=== PATIENT | male | born 2000 | race Caucasian/White ===

== ENCOUNTER → 2024-08-07 | Outpatient (CLI) | payer BC, MEDICAID, SELFPAY ==
--- NOTE | 2024-08-07 09:04 | CT_ITS ---
PROCEDURE: SINUS/FACIAL BONE REASON FOR EXAM: SINUSITIS TECHNIQUE: CT of the paranasal sinuses without contrast. Coronal and Sagittal reconstruction series were provided. One or more dose reduction techniques were used (e.g., Automated exposure control, adjustment of the mA and/or kV according to patient size, use of iterative reconstruction technique). COMPARISON: None. FINDINGS: [id number] scattered polypoid mucosal thickening throughout the bilateral maxillary, ethmoid and sphenoid sinuses. No frothy mucosal thickening or fluid levels to suggest acute sinusitis. Opacification of the left sphenoethmoidal recess and bilateral ostiomeatal units. Marked asymmetric mucosal thickening of the left middle and inferior turbinates without a discrete polypoid mass. Mild rightward nasal septal deviation. Small bilateral quinton bullosa. Mastoid air cells and middle ear cavities are clear. TMJs are within normal limits. CT/Sinus/Facial Bone IMPRESSION: 1. [id number] scattered paranasal sinus disease as above. No evidence of acute sinusitis. 2. Opacification of the left sphenoethmoidal recess and bilateral ostiomeatal u nits. 3. Asymmetric thickening of the left turbinates. Small bilateral quinton bullos a. 4. Mild rightward nasal septal deviation. Reading Location: [facility]
== END | disposition home or self-care (01) ==
LOC: CT 08:55
PROVIDERS: Referring Provider Otolaryngology Otolaryngology/Facial Plastic Surgery; Visit Provider Otolaryngology Otolaryngology/Facial Plastic Surgery
DX: J32.9 Chronic sinusitis, unspecified (principal)
CPT/HCPCS: 70486

== ENCOUNTER 2024-11-29 08:21 | Day surgery (SDC) | payer BC, SELFPAY ==
[2024-11-29] VITALS (10 sets, daily range): BP systolic 77–124; BP diastolic 51–68; PULSE 40–53; RESP 12–18; TEMP 36.2–36.9; O2SAT 94–100; BMI 22.5
[2024-11-29] MEDS: Lactated Ringers 1,000 ML 15 ML IV (08:59)
[2024-11-29] MEDS: Oxymetazoline 0.05% 1 SPRAY SPRAY.BTL 3 SPRAY NASAL (09:07)
--- NOTE | 2024-11-29 09:14 | PRE.ANES_ITS ---
ASA Classification* ASA Classification ASA Classification: 2 Assessment & Plan Anesthesia* Anesthesia Assessment Anesthesia Assessment: Discussed sedation and/or anesthesia options, risks, benefits, and alternatives with patient/parents/legal guardian/POA. Questions invited. The patient/parents/legal guardian/POA seems to understand and agrees to proceed with anesthesia plan. Reviewed the physical assessment, medical history, allergy history and patient home medications list prior to surgery/procedure/anesthetic and documented any changes. Performed airway and anesthesia risk assessments. 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 When Was Last Pacemaker Check QUESTION #4 FULL TEXT: You/Your Family Experience fever (hyperthermia) with Anesthesia Last Oral Intake Last Oral intake: Last Oral Intake NPO since 00:00 11/29/24 09:01 Meds taken in AM with sips of No 11/29/24 09:01 water? Meds patient instructed to take am of surgery PONV PONV - branner machine tender: PONV - branner machine tender Female No 11/15/24 08:50 HX of Motion Sickness No 11/15/24 08:50 HX of N/V After Surgery No 11/15/24 08:50 Non-Smoker Yes 11/15/24 08:50 Duration of Surgery greater Yes 11/15/24 08:50 than 60 minutes Number of Risk Factors 2 11/15/24 08:50 PONV Score Moderate Risk 11/15/24 08:50 Height & Weight Height & Weight: Anesthesia: Height & Weight Height 6 ft 3 in 11/29/24 09:01 Weight: 81.7 kg 11/29/24 09:01 Body Mass Index (BMI) 22.5 11/29/24 09:01 Respiratory Assessment Respiratory Assessment - branner machine tender: Respiratory Tract Infection Hx - branner machine tender Hx Respiratory Tract Infection Yes: COVID + TESTED 10/03/2024 11/15/24 08:50 STOP Sleep Apnea STOP Sleep Apnea - branner machine tender: STOP Sleep Apnea - branner machine tender Hx Hypertension No 11/15/24 08:50 Hx Sleep Apnea No 11/15/24 08:50 CPAP BIPAP Do you snore loudly (louder No 11/15/24 08:50 than talking or can be heard Do you often feel tired/ No 11/15/24 08:50 fatigued/ sleepy during daytime? Has anyone observed you stop No 11/15/24 08:50 breathing during sleep? STOP Results Negative 11/15/24 08:50 QUESTION #5 FULL TEXT : Do you snore loudly (louder than talking or can be heard through closed doors)? 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 Specify any problems Hx of Preganancy in last 3 N/A 11/15/24 08:50 Months Nurse Filling Out Transfusion NBUCHER 11/15/24 08:50 & Questions: Date: 11/15/24 11/15/24 08:50 Time: 08:50 11/15/24 08:50 Patient unable to answer at this time (ie. confused, unrespo /Reproduction History /Reproductive History - branner machine tender: /Reproductive Hx- branner machine tender Hx Now Gestational Age (in weeks): EDC: Hx Hx Para Hx Section SAB Active Medications Active Medications: Current Medications Generic Name Dose Route Start Last Admin Trade Name Freq PRN Reason Stop Dose Admin Lactated Ringer's 1,000 mls @ 15 mls/hr 11/29/24 08:45 11/29/24 08:59 IV 15 mls/hr .Q48H EVELIN Administration PFSH Medical History Wears glasses Wears contact lenses Alcohol use History of steroid therapy Injury of head and neck Chewing tobacco dependence Home Medications ?Medication ?Instructions ?Recorded ?Last Taken ?Type NK 10/07/24 Unknown History Allergy/AdvReac Type Severity Reaction Status Date / Time No Known Allergies Allergy Verified 11/29/24 08:59 Social History Smoking Status: Current some day smoker tobacco type: smokeless tobacco Review of Systems (Anesthesia) ROS Narrative System reviewed and no additional complaints, except as documented.
[2024-11-29] MEDS: Lactated Ringers 1,000 ML 1000 ML IV (09:46)
[2024-11-29] MEDS: fentaNYL 250mcg vial 100 ML 100 MCG IV (09:46)
[2024-11-29] MEDS: dexMEDEtomidine 200 MCG/2 ML ML 60 MCG IV (09:47)
--- NOTE | 2024-11-29 09:51 | PCM.DC.SUM ---
Providers Primary Care Physician: No Primary Care Phys Reason For Visit: Functional Endoscopoic Sinus Surgery, Navigation Medications at Discharge Home Medications NK 10/07/24 Weight / BMI Weight Weight: 81.7 kg Body Mass Index (BMI) 22.5 D/C Instructions Discharge Activity: Return to Normal Activity Additional Activity Instructions: No nose blowing Start irrigation 11/30/24. Irrigate 4x/day DC O2, CPAP, BIPAP Needs Home O2 Discharge instructions: No Please Follow Up With: Jay Brown MD When: Next week. Call for appointment Meaningful Use Info Meaningful Use Meaningful Use Diagnoses (Choose all that apply): None applicable Discharge Plan Admission Attending Provider: Jay Brown Primary Care Provider: Care Physician,No Primary Instructions Print Language: E[place] Discharge Orders/Prescriptions Prescriptions: No Action NK Referrals / Follow Up: Care Physician,No Primary [Primary Care Provider] - Disposition Disposition (needs filled in before D/C Order can be placed): Home, Self Care
--- OUTSIDE RECORDS SUMMARY | 2024-11-29 09:56 | XMS RPT_ITS | CCD ---
Author Organization [facility] Care Team Providers Care Telephonic Case Manager Name Role Phone Trudi Wright Unavailable UnavailDANIEL Gallegos Unavailable Unavailable Veronica Holcomb Primary Care Provid er Veronica Holcomb MD Primary Care Pro vider Unavailable Primary Care Provider Unavailabl e VEORNICA HOLCOMB Primary Care Jeanette vailable Kevin FAGAN, Dr. Zack Tapia Attending Provider [phone] Dr. Zack Brown MD Referring Provider [phone] Care Physician, No Primary Primary Care Provider Unavailable Zack Brown Referring Unavailable Zack Brown Attending Unavailable Care Physician, No Primary Primary Care Unava ilable Care Physician, No Primary Primary Care Unava ilable Jay Brown Referring Unavailable Jay Brown Attending Unavailable Medications Current Medications Medication Drug Class(es) Dates Sig (Normalized) Sig (Original) amoxicillin 875 mg / clavulanate 125 mg oral tablet (2 sources) Penicillin-class Antibacterial Start: 06-10-2024 End: 06-20-2024 take 1 tablet by mouth twice daily amoxicillin-clav ulanate potassium (AUGMENTIN) 875-125 mg per tablet Indications: Bacterial sinusitis Take 1 tablet by mouth two times a day for 10 days. 20 tablet 06/10/2024 06/20/2024 Active Start: 04-20-2024 End: 04-27-2024 take 1 tablet by mouth twice daily amoxicillin-clavulanate potassium (AUGMENTIN) 875-125 mg per tablet Indications: Bacterial sinusitis Take 1 tablet by mouth two times a day for 7 days. 14 tablet 04/20/2024 04/27/2024 Active brompheniramine maleate 0.4 mg/ml / dextromethorphan hydrobromide 2 mg/ml / pseudoephedrine hydrochloride 6 mg/ml oral solution (4 sources) alpha-Adrenergic Agonist, Uncompetitive I-uvshzq-A-aspartate Receptor Antagonist, Sigma-1 Agonist Start: 12-11-2020 take 5-10 mL by mouth every six hours as needed Lcdttjhdorobnwf-Cgusmesqx-MY (BROMFED DM) 2-30-10 mg/5 mL syrup Take 5-10 ml po q6h prn 120 mL 12/11/2020 Active Comment on above: Take 5-10 ml po q6h prn doxycycline hyclate 100 mg oral capsule (4 sources) Tetracycline-class Drug take 1 capsule by mouth twice daily doxycycline hyclate (VIBRAMYCIN) 100 mg capsule Take 100 mg by mouth twice daily. Active Comment on above: Take 100 mg by mouth twice daily. fluticasone propionate 0.05 mg/actuat metered dose nasal spray (2 sources) Corticosteroid Start: 04-20-2024 take 2 spray(s ) by mouth once daily fluticasone (FLONASE) 50 mcg/actuation nasal spray Indications: Bacterial sinusitis Use 2 Sprays in each nostril once daily. Rinse mouth after use. 1 Each 04/20/2024 Active Problems Problem Classification Problem Date Documented Da te Episodic/Chronic Other upper respiratory infections (3 sources) Bacterial sinusitis; Translations: [Chronic sinusitis, unspecified] Onset: 11-09-2024 04-20-2024 Chronic Other upper respiratory infections (1 source) Acute upper respiratory infection; Translations: [Acute upper respiratory infection, unspecified] Episodic Results Test Name Value Interpretation Reference Range Facility Sinus/Facial Boneon 08-08-19 Sinus/Facial Bone [facility] Imaging Services [address] [place] [address] Sinus/Facial Bone MR#: [id number] Acct: [id number] Name: TIP CASE Rep #: [id number] : 2000 M 24 From: Kal Cobb PCP: Care Physician,No Primary Status: REG CLI Study: Sinus/Facial Bone Date of Exam: 08/07/24 Exam# [id number] Ordering Dr: Zack Brown MD PROCEDURE: SINUS/FACIAL BONE REASON FOR EXAM: SINUSITIS TECHNIQUE: CT of the paranasal sinuses without contrast. Coronal and Sagittal reconstruction series were provided. One or more dose reduction techniques were used (e.g., Automated exposure control, adjustment of the mA and/or kV according to patient size, use of iterative reconstruction technique). COMPARISON: None. FINDINGS: Veyu-ci-uvvvyagz scattered polypoid mucosal thickening throughout the bilateral maxillary, ethmoid and sphenoid sinuses. No frothy mucosal thickening or fluid levels to suggest acute sinusitis. Opacification of the left sphenoethmoidal recess and bilateral ostiomeatal units. Marked asymmetric mucosal thickening of the left middle and inferior turbinates without a discrete polypoid mass. Mild rightward nasal septal deviation. Small bilateral quinton bullosa. Mastoid air cells and middle ear cavities are clear. TMJs are within normal limits. CT/Sinus/Facial Bone IMPRESSION: 1. Hdpr-np-dqmviyxa scattered paranasal sinus disease as above. No evidence of acute sinusitis. 2. Opacification of the left sphenoethmoidal recess and bilateral ostiomeatal units. 3. Asymmetric thickening of the left turbinates. Small bilateral quinton bullosa. 4. Mild rightward nasal septal deviation. Reading Location: [facility] CC: Dr. Zack Brown MD; No Primary Care Physician Senior Data Mining Analyst: Signed [facility] CNOVon 06-10-2024 CNOV Office Visit (UCWSTR ) TIP CASE ([id number]) 4 M Date Time Provider Department 06/10/24 3:15 PM [facility] During your visit today, we recorded the following information about you: Temperature Pulse Respiration Blood pressure 98.6 degrees 81/minute 18/minute 107/69 Weight 87 kg Marii Bryson APRN.CNP 06/10/2024 3:36 PM Signed This note was created using Sentrixriter. Subjective Tip Case is a 24 year old male. HPI For about the last three months pt has had sinus congestion and pressure. I was seen 04/20 and given a script of Augmentin. Symptoms almost resolved but then returned again. Review of Systems Constitutional: Negative for fever. HENT: Positive for sinus pressure and sinus pain. Respiratory: Negative for cough. Objective BP 107/69 Pulse 81 Temp 37 ?C (98.6 ?F) Resp 18 Wt 87 kg (191 lb 12.8 oz) SpO2 99% Physical Exam Vitals and nursing note reviewed. Constitutional: General: He is not in acute distress. Appearance: Normal appearance. He is not ill-appearing. HENT: Head: Normocephalic. Mouth/Throat: Mouth: Mucous membranes are moist. Pharynx: No oropharyngeal exudate or posterior oropharyngeal erythema. Eyes: Conjunctiva/sclera: Conjunctivae normal. Cardiovascular: Rate and Rhythm: Normal rate and regular rhythm. Pulmonary: Effort: Pulmonary effort is normal. Breath sounds: Normal breath sounds. Musculoskeletal: General: Normal range of motion. Cervical back: Normal range of motion. Skin: General: Skin is warm and dry. Neurological: General: No focal deficit present. Mental Status: He is alert. Psychiatric: Mood and Affect: Mood normal. Behavior: Behavior normal. Assessment and Plan ASSESSMENT/PLAN: 1. Bacterial sinusitis - ICD9: 473.9, 041.9, ICD10: J32.9, B96.89 -Discussed with patient my concerns that his symptoms may be caused by something other than a bacterial infection. He was given an additional prescription as noted below but instructed him that if symptoms do not improve I would recommend follow-up with ENT. He will otherwise use iutj-gcs-jhrheox nasal sprays and decongestants for symptomatic relief. - AMOXICILLIN 875 MG-POTASSIUM CLAVULANATE 125 MG TABLET Marii Bryson APRN.CNP Allergies As of Date: 06/10/2024 (No Known Allergies) Date Reviewed: 06/10/2024 Reviewed by: Marii Bryson APRN.CNP - Fully Assessed Reason for Visit: Head Congestion [234] Cmt: Sinus congestion, drainage, MIR x3 months, seen 04/20 for same, 3 weeks at that time Primary Visit Diagnosis:Bacterial sinusitis [J32.9, B96.89] Order(s):amoxicillin- clavulanate potassium (AUGMENTIN) 875-125 mg per tabletTake 1 tablet by mouth two times a day for 10 days.Disp: 20 tabletRfl: 0 Prescriptions as of 06/10/2024 - amoxicillin-clavulana te potassium (AUGMENTIN) 875-125 mg per tablet Take 1 tablet by mouth two times a day for 10 days. - fluticasone (FLONASE) 50 mcg/actuation nasal spray Use 2 Sprays in each nostril once daily. Rinse mouth after use. - doxycycline hyclate (VIBRAMYCIN) 100 mg capsule Take 100 mg by mouth twice daily. - Brompheniramine-Pseud oeph-DM (BROMFED DM) 2-30-10 mg/5 mL syrup Take 5-10 ml po q6h prn Problem List As Of Date: 06/10/2024 (None) Prescriptions ordered this encounter Disp Refills Start End AMOXICILLIN 875 MG-POTASSIUM CLAVULA* 20 t* 0 06/10/2024 06/20/2024 Route: ORAL Sig: Take 1 tablet by mouth two times a day for 10 days. Encounter Status:Closed by MARII BRYSON on 06/10/24 [facility] CNOVdedra 04-20-2024 CNOV Office Visit ([facility] ) TIP CASE ([id number]) 4 M Date Time Provider Department 04/20/24 11:15 AM [facility] During your visit today, we recorded the following information about you: Temperature Pulse Respiration Blood pressure 97.4 degrees 84/minute 16/minute 110/66 Weight 84 kg Melissa Marquez APRN.EDGE TRIMMER MECHANIC 04/20/2024 12:10 PM Signed Subjective Sinus Problem Associated symptoms include congestion and coughing. Pertinent negatives include no chills, fever, myalgias or sore throat. Tip Case is a 23 year old male who presents with sinus pressure and congestion x 3 weeks. He states congestion is worse at night. He has had brown mucous from his nose. He has a slight cough. Has had not had a fever. He has not taken any medication at home. Review of Systems Constitutional: Negative for chills, fever and malaise/fatigue. HENT: Positive for congestion and sinus pain. Negative for ear pain and sore throat. Respiratory: Positive for cough. Cardiovascular: Negative. Musculoskeletal: Negative for myalgias. BP 110/66 Pulse 84 Temp 36.3 ?C (97.4 ?F) Resp 16 Wt 84 kg (185 lb 3 oz) SpO2 97% No past medical history on file. No past surgical history on file. ALLERGIES Patient has no known allergies. MEDICATIONS amoxicillin-clavulana te potassium (AUGMENTIN) 875-125 mg per tablet Take 1 tablet by mouth two times a day for 7 days. fluticasone (FLONASE) 50 mcg/actuation nasal spray Use 2 Sprays in each nostril once daily. Rinse mouth after use. doxycycline hyclate (VIBRAMYCIN) 100 mg capsule Take 100 mg by mouth twice daily. (Patient not taking: Reported on 10/16/2021 ) Brompheniramine-Pseud oeph-DM (BROMFED DM) 2-30-10 mg/5 mL syrup Take 5-10 ml po q6h prn (Patient not taking: Reported on 10/16/2021 ) No family history on file. Social History Tobacco Use Smoking status: Never Smokeless tobacco: Never Objective Physical Exam Vitals and nursing note reviewed. Constitutional: General: He is not in acute distress. Appearance: Normal appearance. He is not ill-appearing. HENT: Right Ear: Tympanic membrane, ear canal and external ear normal. Left Ear: Tympanic membrane, ear canal and external ear normal. Nose: Nasal tenderness, mucosal edema, congestion and rhinorrhea present. Mouth/Throat: Mouth: Mucous membranes are moist. Pharynx: Oropharynx is clear. Uvula midline. No oropharyngeal exudate or posterior oropharyngeal erythema. Cardiovascular: Rate and Rhythm: Normal rate and regular rhythm. Heart sounds: Normal heart sounds. Pulmonary: Effort: Pulmonary effort is normal. No respiratory distress. Breath sounds: Normal breath sounds. No wheezing or rales. Musculoskeletal: Cervical back: Neck supple. Lymphadenopathy: Cervical: No cervical adenopathy. Skin: General: Skin is warm and dry. Findings: No erythema or rash. Neurological: Mental Status: He is alert. ASSESSMENT/PLAN: 1. Bacterial sinusitis - ICD9: 473.9, 041.9, ICD10: J32.9, B96.89 - Will begin treatment with as per antibiotic as written, see orders - Supportive care with plenty of fluids, rest, and analgesia prn. - AMOXICILLIN 875 MG-POTASSIUM CLAVULANATE 125 MG TABLET - FLUTICASONE PROPIONATE 50 MCG/ACTUATION NASAL SPRAY,SUSPENSION - Follow-up with your PCP in 3-5 days if symptoms have not improved or sooner if symptoms worsen - Discussed red flags and need for immediate medical evaluation if any occur. - Discussed supportive care treatment with fluids, rest and analgesia. - Discussed expected course of illness KINGSLEY Tan Kathy, APRN.CNP 04/20/2024 12:09 PM Signed ASSESSMENT/PLAN: 1. Bacterial sinusitis - ICD9: 473.9, 041.9, ICD10: J32.9, B96.89 - Will begin treatment with as per antibiotic as written, see orders - Supportive care with plenty of fluids, rest, and analgesia prn. - AMOXICILLIN 875 MG-POTASSIUM CLAVULANATE 125 MG TABLET - FLUTICASONE PROPIONATE 50 MCG/ACTUATION NASAL SPRAY,SUSPENSION - Follow-up with your PCP in 3-5 days if symptoms have not improved or sooner if symptoms worsen - Discussed red flags and need for immediate medical evaluation if any occur. - Discussed supportive care treatment with fluids, rest and analgesia. - Discussed expected course of illness Melissa Marquez APRN.CNP Adult Sinusitis Patient Education What is Sinusitis? Sinusitis [crqw-rkl-iuug-tis] is inflammation of the sinuses or swelling of the lining of the sinus cavity or nose. During an infection the sinuses become blocked with fluid causing swelling of the lining of the sinuses. Symptoms: (viral and bacterial infections) Stuffy nose Runny nose Postnasal drip Fever Toothache Headache Tiredness Cough Sore throat Face and head pressure and or pain Common causes: 98% of sinus infections are (more content not included)... Normal [facility] Progress Noteon 10-18-2019 Golf Sales Associate Authentication Interface Message Text Patient ID: Tip Case is a 19 y.o. male. His chief complaint(s) include: No chief complaint on file. Assessment 1. Encounter for routine child health examination without abnormal findings 2. Exercise counseling 3. Encounter for dietary counseling and surveillance 4. Need for vaccination Plan Diagnoses and all orders for this visit: Encounter for routine child health examination without abnormal findings - Hearing Screening - Vision Screening - PHQ9 Assessment With Score Exercise counseling Encounter for dietary counseling and surveillance Need for vaccination - Meningococcal ACWY (MENACTRA) - Meningococcal B (BEXSERO) Return in about 1 year (around 10/17/2020) for well check. gardasil vaccine benefits and risks discussed. Parent declined at this time. Reviewed good progress with school. Subjective He is unaccompanied. 19 YEAR WELL CHILD Home: Tip eats meals with family, has an adult to turn to for help and is permitted and able to make independent decisions. Education: Tip is in 12th grade and is doing well, is doing well with homework, earns A's & B's and earns C's. ([employer]). Eating: Tip eats regular meals including fruits and vegetables, eats breakfast, limits fast food, drinks non-sweetened liquids and has a calcium source. Activities & Sports: Tip has a job ([employer]ing), plays team sports (basketball, football) and has drivers license. Drugs: Tip does not use tobacco, does not use drugs, does not use alcohol and does not vape. Safety: Tip has a violence free home, has peer relationships free from violence and uses seat belt. Sex: The patient has a sexual partner. The patient is interested in females. The patient has had sex. The patient's gender identity is cisgender. Typically, the patient uses condoms as current contraceptive method. The patient has not had an STD. The patient's partner has had an STD: no. STD screening offered and declined. Suicidality: Tip has no depression, has no anxiety, has no suicidal ideation and has no homicidal ideation. Output Urine and Stool Pattern: Urine and Stool Pattern: Normal stool pattern, normal urine pattern. Stool Consistency: soft Sleep Sleeping Difficulty: no difficulty sleeping Hours of sleep at a time: 8 Teen Anticipatory Guidance The following anticipatory guidance was reviewed during the visit: Nutrition: limit junk food/fast food and soft drinks. Safety: home safety. Social: avoid or limit screen time and bullying. Health: age appropriate dental care, avoid situations where drugs and alcohol are present, how to resist peer pressure to smoke, drink, use drugs, learn how to say 'no' to sex, contraception/practic e safe sex/ use condoms, discuss athletic conditioning/ weight training/weight supplements, learn to manage time and activities, be responsible for attendance/ homework/ course selection, learn about self and strengths, recognize and deal with stress and driving risks. Screenings Life events information was reviewed-no referral needed Hearing Vision Concerns: The caregiver has no concerns about the patient's hearing. The caregiver has no concerns about the patient's vision. Primary Care Review of Systems Objective Vital Signs 10/18/19 1512 BP: 125/71 Pulse: 78 Weight: 87.1 kg Height: 188.1 cm Body mass index is 24.62 kg/m . Physical Exam Constitutional: He appears well. He is active. No distress. HENT: Head: Atraumatic. Ears: Right Ear: Tympanic membrane and external ear normal. Left Ear: Tympanic membrane and external ear normal. Nose: Nose normal. Mouth/Throat: Mucous membranes are moist. Dentition is normal. Oropharynx is clear. Eyes: Conjunctivae and EOM are normal. No strabismus. Pupils are equal, round, and reactive to light. Neck: Normal range of motion. Neck supple. Thyroid normal. Cardiovascular: Normal rate, regular rhythm, S1 normal and S2 normal. Pulses are palpable. Heart murmur not heard. Pulmonary/Chest: Breath sounds normal. No respiratory distress. Exhibits no deformity. Abdominal: Soft. Bowel sounds are normal. He exhibits no distension and no mass. There is no hepatosplenomegaly. There is no abdominal tenderness. Genitourinary: Testes and penis normal. No inguinal hernia noted. Musculoskeletal: Normal range of motion. Back: He exhibits no scoliosis. Neurological: He is alert. He has normal strength. He exhibits normal muscle tone. Gait normal. Skin: Skin is warm and not pale. Findings: No rash. Vitals reviewed: Blood pressure 125/71, pulse 78, height 188.1 cm, weight 87.1 kg. Tip Case is a 19 y.o. male patient. PHQ9 Assessment With Score Performed by: Veronica Holcomb MD Authorized by: Veronica Holcomb MD PHQ-9 See PHQ9 Flowsheet Feeling down, depressed, irritable or hopeless: Not at all Little interest or pleasure in doing things: Not at all Trouble falling or staying sleep, or sleeping too much: Not at all Poor appetite, weight loss, or overeating: Not at all Feeling tired or having little energy: Not at all Feeling bad about yourself - or feeling that you are a failure, or have let yourself or your family down: Not at all Trouble concentrating on things, like school work, reading or watching TV: Not at all Moving or speaking so slowly that other people could have noticed. Or the opposite - being so fidgety or restless that you were moving around a lot more than usual: Not at all Thoughts that you would be better off , or of hurting yourself in some way: Not at all In the past year have you felt depressed or sad most days, even if you felt OK sometimes?: No If you are experiencing any of the problems on this form, how difficult have these problems made it for you to do your work, take care of things at home or get along with other people?: Not difficult at all Has there been a time in the past month when you have had serious thoughts about ending your life?: No Have you ever, in your whole life, tried to kill yourself or made a suicide attempt?: No PHQ-9 Total Score: 0 Electronically signed by: Veronica Hickman MD [facility] Progress Noteon 04-07-2019 Golf Sales Associate Authentication Interface Message Text Patient ID: Tip Case is a 18 y.o. male. His chief complaint(s) include: Pharyngitis (tonsils swollen) Assessment 1. Acute pharyngitis, unspecified etiology 2. Sore throat Plan Tip was seen today for pharyngitis. Diagnoses and all orders for this visit: Acute pharyngitis, unspecified etiology - Strep culture - amoxicillin-clavulana te (AUGMENTIN) 875-125 MG tablet; Take 1 Tab (875 mg) by mouth 2 times daily for 10 days Sore throat - POCT rapid strep A antigen Return in 2 weeks (on 2019), or if symptoms worsen or fail to improve, for recheck. Subjective He is accompanied by his mother. Pharyngitis The onset has been acute. The duration has been 1 week. The pattern is persistent. The course is worsening. Characterized by aching. Aggravated by drinking, eating and coughing. Symptoms are relieved by nothing. The patient's symptoms have included difficulty sleeping, congestion and swollen lymph nodes. The patient's symptoms have included no fever, no difficulty breathing, no shortness of breath, no wheezing, no vomiting and no rash. The patient's home management has included ibuprofen. Primary Care Review of Systems Objective Vital Signs 04/07/19 1518 Temp: 37.2 C (99 F) TempSrc: Temporal Weight: 89.3 kg There is no height or weight on file to calculate BMI. Physical Exam Nursing note reviewed. Constitutional: He appears well. He is active. No distress. HENT: Head: Atraumatic. Right Ear: Tympanic membrane normal. Left Ear: Tympanic membrane normal. Mouth/Throat: Mucous membranes are moist. Pharynx erythema present. Eyes: Conjunctivae are normal. Neck: Neck adenopathy present. Cardiovascular: Normal rate and regular rhythm. Heart murmur not heard. Pulmonary/Chest: Effort normal and breath sounds normal. There is normal air entry. Air movement is not decreased. Abdominal: Soft. Bowel sounds are normal. Neurological: He is alert. Skin: Capillary refill takes less than 3 seconds. Skin is warm. Vitals reviewed: Temperature 37.2 C (99 F), temperature source Temporal, weight 89.3 kg. Last Result POCT rapid strep A antigen Collection Time: 04/07/19 3:26 PM Result Value Ref Range Strep A Antigen None Detected None Detected Yellow Solution *Present Red Control Line *Present Clear Background *Present Lot Number [id number] Normal [facility] Strep Cultureon 04-07-2019 Strep Culture Is this specimen being sent to an external lab?->No Strep Culture: Beta Streptococcus not Group A Source: THRSW Collected: 04/07/19 15:54 Site: Throat-pharynx Received : 04/07/19 19:52 Strep Culture FINAL 04/09/19 09:16 Beta Streptococcus not Group A Normal [facility] Comment on above: Performed By: #### S KRISTEN #### [facility] [address] [place] [id number] [facility] Note on 12-27-2017 [facility] Note Normal [facility] [place] Pat Eduon 12-27-2017 Pat Edu Normal [facility] [place] Patient Summary Documentson 12-27-2017 Patient Summary Documents Normal [facility] [place] XR ANKLE MINIMUM 3 VIEWS LEF Ton 12-27-2017 INR Coag RelTime (Bld) ORIGINALXR ANKLE MINIMUM 3 VIEWS LEFT CLINICAL STATEMENT: LEFT lateral ankle pain, rolled LEFT ankle today. COMPARISON: None FINDINGS: No acute fracture or dislocation is identified. The ankle mortise and talar dome are normal. The joint spaces are maintained. Minimal soft tissue swelling adjacent the lateral malleolus is noted. Small tibiotalar joint effusion noted. IMPRESSION: No acute fracture or dislocation. Minimal soft tissue swelling adjacent the lateral malleolus. Small joint effusion. I have personally reviewed the images of this examination and agree with the resident's findings and interpretation. Interpreted By: Fco Dahl MDPreliminary Report By: Ana María Bernstein MDElectronically Signed By: Fco Dahl MD Dictated Date: 12/27/2017 2:01:44 PM Prelim Date: 12/27/2017 2:04:31 PM Sign Date: 12/27/2017 2:07:18 PM Normal [facility] [place] Vital Signs Date Time Vital Sign Value Performing Clinician Faci lity 06-10-2024 15:28-0500 Body temperature 98.6 [degF] Marii Braydon HURL SHAKER.EDGE TRIMMER MECHANIC Work Phone: [facility] 06-10-2024 15:28-0500 Body weight 87 kg Marii Braydon HURL SHAKER.EDGE TRIMMER MECHANIC Work Phone: [facility] 06-10-2024 15:28-0500 Diastolic blood pressure 69 mm[Hg] Marii Braydon HURL SHAKER.EDGE TRIMMER MECHANIC Work Phone: [facility] 06-10-2024 15:28-0500 Heart rate 81 /min Marii Moomaw HURL SHAKER.EDGE TRIMMER MECHANIC Work Phone: [facility] 06-10-2024 15:28-0500 Respiratory rate 18 /min Marii Moomaw HURL SHAKER.EDGE TRIMMER MECHANIC Work Phone: [facility] 06-10-2024 15:28-0500 SaO2% (BldA) [Mass fraction] 99 % Marii Moomaw HURL SHAKER.EDGE TRIMMER MECHANIC Work Phone: [facility] 06-10-2024 15:28-0500 Systolic blood pressure 107 mm[Hg] Marii Moomaw HURL SHAKER.EDGE TRIMMER MECHANIC Work Phone: [facility] 04-20-2024 11:34-0500 Body temperature 97.39 [degF] Melissa Praisler-Wood HURL SHAKER.EDGE TRIMMER MECHANIC Work Phone: [facility] 04-20-2024 11:34-0500 Body weight 84 kg Melissa Praisler-Wood HURL SHAKER.EDGE TRIMMER MECHANIC Work Phone: [facility] 04-20-2024 11:34-0500 Diastolic blood pressure 66 mm[Hg] Melissa Praisler-Wood HURL SHAKER.EDGE TRIMMER MECHANIC Work Phone: [facility] 04-20-2024 11:34-0500 Heart rate 84 /min Melissa Praisler-Wood HURL SHAKER.EDGE TRIMMER MECHANIC Work Phone: [facility] 04-20-2024 11:34-0500 Respiratory rate 16 /min Melissa Praisler-Wood HURL SHAKER.EDGE TRIMMER MECHANIC Work Phone: [facility] 04-20-2024 11:34-0500 SaO2% (BldA) [Mass fraction] 97 % Melissa Praisler-Wood HURL SHAKER.EDGE TRIMMER MECHANIC Work Phone: [facility] 04-20-2024 11:34-0500 Systolic blood pressure 110 mm[Hg] Melissa Praisler-Wood HURL SHAKER.EDGE TRIMMER MECHANIC Work Phone: [facility] 10-16-2021 18:19-0400 Body temperature 98.6 [degF] Abe Davis HURL SHAKER.EDGE TRIMMER MECHANIC Work Phone: [facility] 10-16-2021 18:19-0400 Body weight 86.55 kg Abe Davis HURL SHAKER.EDGE TRIMMER MECHANIC Work Phone: [facility] 10-16-2021 18:19-0400 Diastolic blood pressure 80 mm[Hg] Abe Davis HURL SHAKER.EDGE TRIMMER MECHANIC Work Phone: [facility] 10-16-2021 18:19-0400 Heart rate 102 /min Abe Davis HURL SHAKER.EDGE TRIMMER MECHANIC Work Phone: [facility] 10-16-2021 18:19-0400 Respiratory rate 16 /min Abe Davis HURL SHAKER.EDGE TRIMMER MECHANIC Work Phone: [facility] 10-16-2021 18:19-0400 SaO2% (BldA) [Mass fraction] 97 % Abe Davis HURL SHAKER.EDGE TRIMMER MECHANIC Work Phone: [facility] 10-16-2021 18:19-0400 Systolic blood pressure 122 mm[Hg] Abe Davis HURL SHAKER.EDGE TRIMMER MECHANIC Work Phone: [facility] Encounters Encounter Date Encounter Type Care Provider Facility Start: 11-29-2024 ambulatory No Primary Car e Physician Facility:[facility] Start: 08-07-2024 End: 08-07-[address] Zack Brown MD Work Phone: [facility] Work Phone: Start: 08-07-2024 End: 08-07-[address] Zack Brown MD -Cat Scan, [facility] Work Phone: Start: 08-07-2024 End: 08-07-2024 ambulatory Zack Brown Facility:[facility] Start: 06-10-2024 End: 06-10-2024 ambulatory VERONICA HICKMAN Facility:[facility] Start: 06-10-2024 End: 06-10-2024 Patient encounter procedure Marii Bryson HURL SHAKER.EDGE TRIMMER MECHANIC Work Phone: [facility] Comment on above: Bacterial sinusitis (Primary Dx) Start: 04-20-2024 End: 04-20-2024 ambulatory VERONICA GOODMAN LOCBOYD Facility:[facility] Start: 04-20-2024 End: 04-20-2024 Patient encounter procedure Melissa Marquez HURL SHAKER.EDGE TRIMMER MECHANIC Work Phone: [facility] Comment on above: Bacterial sinusitis (Primary Dx) Start: 10-17-2021 Telephone encounter Brittney Lexi hopson HURL SHAKER.EDGE TRIMMER MECHANIC Work Phone: [facility] Comment on above: Results Start: 10-16-2021 End: 10-16-2021 Patient encounter procedure Abe Davis HURL SHAKER.EDGE TRIMMER MECHANIC Work Phone: [facility] Comment on above: URI, acute (Primary Dx) Start: 12-27-2017 End: 12-27-2017 Emergency department patient visit Trudi Wright Facility:B Procedures Date Procedure Procedure Detail Performing Clinician Start: 08-07-[address] Zack miranda MD Work Phone: Plan of Treatment Date Care Activity Detail Author Start: 11-21-2024 Urine microalbumin profile DTaP,Tdap,Td Vaccine (7 - Td or Tdap) [facility] Start: 12-28-2023 Covid-19 Vaccine ( season) Covid-19 Vaccine ( season) [facility] Start: 12-28-2023 Influenza vaccination Influenza Vacc ine (#1) [facility] Start: 12-27-2021 Influenza vaccination INFLUENZ A (Season Ended) [facility] Start: 2021 Urine microalbumin profile DTAP,TDAP,TD (1 - Tdap) [facility] Start: 2020 Anxiety Screening Anxiety Screening [facility] Start: 2020 Depression Screening Depression Scre [facility] Start: 2020 HEPATITIS C SCREENING HEPATITIS C [facility] Start: 2020 Hepatitis C screening Hepatitis C [facility] Start: 2020 HIV SCREENING HIV SCREENING [facility] Start: 2020 HIV screening HIV Screening [facility] Start: 04-18-2020 Meningococcal B Vacc ine (2 of 2 - Bexsero SCDM 2-dose series) Meningococcal B Vaccine (2 of 2 - Bexsero SCDM 2-dose series) [facility] Start: 11-15-2019 Meningococcal B Vacc ine: Consider Based On Risk (2 of 2 - Risk Bexsero 2-dose series) Meningococcal B Vaccine: Consider Based On Risk (2 of 2 - Risk Bexsero 2-dose series) [facility] Start: 2017 HPV Vaccine (1 - Mal e 3-dose series) HPV Vaccine (1 - Male 3-dose series) [facility] Start: 2016 PEDS TO ADULT TRANSI TION ANNUAL ASSESSMENT PEDS TO ADULT TRANSITION ANNUAL ASSESSMENT [facility] Start: 2014 Adult depression screening assessment DEPRESSION SCREENING [facility] Start: 2014 PEDS TO ADULT TRANSI TION INITIAL DISCUSSION PEDS TO ADULT TRANSITION INITIAL DISCUSSION [facility] Start: 2013 HPV VACCINE (1 - Mal e 2-dose series) HPV VACCINE (1 - Male 2-dose series) [facility] Start: 2012 MENINGOCOCCAL B: Consider based on risk (1 of 2 - Risk Bexsero 2-dose series) MENINGOCOCCAL B: Consider based on risk (1 of 2 - Risk Bexsero 2-dose series) [facility] Start: 2007 COVID-19 VACCINE (#1) COVID-19 VACCI NE (#1) [facility] SARS-CoV-2 (COVID-19 ) RNA [Presence] in Respiratory specimen by WEI with probe detection 2019 CORONAVIRUS Microbiology Routine URI, acute Ordered: 10/16/2021 [facility] Work Phone: Comment on above: Ordered: 10/16/2021 Immunizations Immunization Date Immunization Notes Care Provider Kyle shafer 02-28-2006 influenza virus vacc ine, unspecified formulation Melissa Marquez APRN.CNP Work Phone: [facility] Payers Date Payer Category Payer Self-pay 2022 Medicaid [id number] 2021 Blue [employer] Blue Shield BLUE ACCE SS PPO [id number] 2021 Unknown [employer] BLUE ACCE SS PPO [id number] 2021-Present [phone] [address] [place] [address] PPO [id number] 2021 Unknown [employer]M BLUE ACCE SS PPO [id number] 2021-Present [phone] [address] [place] [address] PPO [id number] 2021 Unknown [id number] 2018 Medicaid [employer] [id number] 2018-Present [phone] [address] [place] [address] Medicaid [id number] 2017 Unknown [id number] 2011 Medicaid [id number] Unknown [id number] Unknown [id number] Social History Date Type Detail Facility Start: 06-14-2014 End: 04-20-2024 Tobacco smoking status NHIS Never smoked tobacco [facility] Work Phone: Start: 06-14-2014 End: 04-20-2024 Tobacco use and exposure Smokeless tobacco non-user [facility] Work Phone: Start: 10-16-2021 End: 06-10-2024 Alcohol intake Not Asked [facility] Start: 2000 Sex Assigned At Not on file [facility] Start: 10-06-2021 End: 10-16-2021 Exposure to SARS-CoV-2 (event) Not sure [facility] Work Phone: Start: 04-05-2020 End: 04-20-2024 History of Social function [facility] Start: 04-05-2020 End: 04-20-2024 Tobacco use panel [facility] National Score (1-100), lower number is lower risk Not on file [facility] Tobacco smoking stat us NHIS Unknown if ever smoked [facility] Work Phone: Start: 08-11-2024 Sex Male (finding) [facility] Start: 2000 Sex Assigned At Male W [facility] Functional Status Date Assessment Result Facility 06-14-2014 Are you deaf, or do you have serious difficulty hearing No 06/14/2014 1:35 PM Clara Gaines MA No [facility] 06-14-2014 Are you blind, or do you have serious difficulty seeing, even when wearing glasses No 06/14/2014 1:35 PM Clara Gaines MA No [facility] 06-14-2014 Do you have serious difficulty walking or climbing stairs No 06/14/2014 1:35 PM Clara Gaines MA No [facility] 06-14-2014 Do you have difficul ty dressing or bathing No 06/14/2014 1:35 PM Clara Gaines MA No [facility] Mental Status Date Assessment Result Facility 06-14-2014 Because of a physica l, mental, or emotional condition, do you have serious difficulty concentrating, remembering, or making decisions No 06/14/2014 1:35 PM EST Clara Pham MA No [facility] Clinical Notes 10-16-2021 to 08-07-2024 Marii Bryson, HURL SHAKER.EDGE TRIMMER MECHANIC - 06/10/2024 3:30 PM ESTPatient InstructionsPraisler-Melissa Figueroa, HURL SHAKER.EDGE TRIMMER MECHANIC - 04/20/2024 12:06 PM ESTTelephone Encounter - Kareen Peña RN - 10/17/2021 8:09 AM EDT Note Date & Type Note Facility 08-07-2024 Radiology Diagnostic study note [facility] Imaging Services [address], [place] [address] Sinus/Facial Bone MR#: [id number] Acct: [id number] Name: TIP CASE Rep #: [id number] : 2000 M 24 From: Neal Goddard DO PCP: Care Physician,No Primary Status: REG CLI Study:Sinus/Facial Bone Date of Exam: Exam# [id number] Ordering Dr: Елена Brown MD PROCEDURE: SINUS/FACIAL BONE REASON FOR EXAM: SINUSITIS TECHNIQUE: CT of the paranasal sinuses without contrast. Coronal and Sagittal reconstruction series were provided. One or more dose reduction techniques were used (e.g., Automated exposure control, adjustment of the mA and/or kV according to patient size, use of iterative reconstruction technique). COMPARISON: None. FINDINGS: Fgzx-lr-ookcaqat scattered polypoid mucosal thickening throughout the bilateral maxillary, ethmoid and sphenoid sinuses. No frothy mucosal thickening or fluid levels to suggest acute sinusitis. Opacification of the left sphenoethmoidal recess and bilateral ostiomeatal units. Marked asymmetric mucosal thickening of the left middle and inferior turbinates without a discrete polypoid mass. Mild rightward nasal septal deviation. Small bilateral quinton bullosa. Mastoid air cells and middle ear cavities are clear. TMJs are within normal limits. CT/Sinus/Facial Bone IMPRESSION: 1. Bjfa-iu-djjvvvrd scattered paranasal sinus disease as above. No evidence of acute sinusitis. 2. Opacification of the left sphenoethmoidal recess and bilateral ostiomeatal units. 3. Asymmetric thickening of the left turbinates. Small bilateral quinton bullosa. 4. Mild rightward nasal septal deviation. Reading Location: [facility] CC: Dr. Zack Brown MD; No Primary Care Physician ~ Senior Data Mining Analyst: Signed [facility] 06-10-2024 Note HNO ID: [id number] Author: MARII BRYSON APRN.EDGE TRIMMER MECHANIC Service: ? Author Type: Nurse Practitioner Type: Progress Notes Filed: 06/10/2024 15:36 Note Text: This note was created using [employer]. Subjective Tip Case is a 24 year old male. HPI For about the last three months pt has had sinus congestion and pressure. I was seen 04/20 and given a script of Augmentin. Symptoms almost resolved but then returned again. Review of Systems Constitutional: Negative for fever. HENT: Positive for sinus pressure and sinus pain. Respiratory: Negative for cough. Objective BP 107/69 Pulse 81 Temp 37 ?C (98.6 ?F) Resp 18 Wt 87 kg (191 lb 12.8 oz) SpO2 99% Physical Exam Vitals and nursing note reviewed. Constitutional: General: He is not in acute distress. Appearance: Normal appearance. He is not ill-appearing. HENT: Head: Normocephalic. Mouth/Throat: Mouth: Mucous membranes are moist. Pharynx: No oropharyngeal exudate or posterior oropharyngeal erythema. Eyes: Conjunctiva/sclera: Conjunctivae normal. Cardiovascular: Rate and Rhythm: Normal rate and regular rhythm. Pulmonary: Effort: Pulmonary effort is normal. Breath sounds: Normal breath sounds. Musculoskeletal: General: Normal range of motion. Cervical back: Normal range of motion. Skin: General: Skin is warm and dry. Neurological: General: No focal deficit present. Mental Status: He is alert. Psychiatric: Mood and Affect: Mood normal. Behavior: Behavior normal. Assessment and Plan ASSESSMENT/PLAN: 1. Bacterial sinusitis - ICD9: 473.9, 041.9, ICD10: J32.9, B96.89 -Discussed with patient my concerns that his symptoms may be caused by something other than a bacterial infection. He was given an additional prescription as noted below but instructed him that if symptoms do not improve I would recommend follow-up with ENT. He will otherwise use ithn-zuq-xixhdqa nasal sprays and decongestants for symptomatic relief. - AMOXICILLIN 875 MG-POTASSIUM CLAVULANATE 125 MG TABLET Marii Bryson APRN.CNP [facility] 06-10-2024 History of Presen t illness Narrative This note was created using [employer]. Subjective Tip Case is a 24 year old male. HPI For about the last three months pt has had sinus congestion and pressure. I was seen 04/20 and given a script of Augmentin. Symptoms almost resolved but then returned again. Review of Systems Constitutional: Negative for fever. HENT: Positive for sinus pressure and sinus pain. Respiratory: Negative for cough. Objective BP 107/69 Pulse 81 Temp 37 C (98.6 F) Resp 18 Wt 87 kg (191 lb 12.8 oz) SpO2 99% Physical Exam Vitals and nursing note reviewed. Constitutional: General: He is not in acute distress. Appearance: Normal appearance. He is not ill-appearing. HENT: Head: Normocephalic. Mouth/Throat: Mouth: Mucous membranes are moist. Pharynx: No oropharyngeal exudate or posterior oropharyngeal erythema. Eyes: Conjunctiva/sclera: Conjunctivae normal. Cardiovascular: Rate and Rhythm: Normal rate and regular rhythm. Pulmonary: Effort: Pulmonary effort is normal. Breath sounds: Normal breath sounds. Musculoskeletal: General: Normal range of motion. Cervical back: Normal range of motion. Skin: General: Skin is warm and dry. Neurological: General: No focal deficit present. Mental Status: He is alert. Psychiatric: Mood and Affect: Mood normal. Behavior: Behavior normal. Assessment and Plan ASSESSMENT/PLAN: 1. Bacterial sinusitis - ICD9: 473.9, 041.9, ICD10: J32.9, B96.89 -Discussed with patient my concerns that his symptoms may be caused by something other than a bacterial infection. He was given an additional prescription as noted below but instructed him that if symptoms do not improve I would recommend follow-up with ENT. He will otherwise use fzbg-dht-wmcrgro nasal sprays and decongestants for symptomatic relief. - AMOXICILLIN 875 MG-POTASSIUM CLAVULANATE 125 MG TABLET Marii Bryson APRN.EDGE TRIMMER MECHANIC documented in this encounter [facility] 04-20-2024 Instructions Melissa Marquez APRN.JAY - 04/20/2024 12:09 PM EST Images from the original note were not included. ASSESSMENT/PLAN: 1. Bacterial sinusitis - ICD9: 473.9, 041.9, ICD10: J32.9, B96.89 - Will begin treatment with as per antibiotic as written, see orders - Supportive care with plenty of fluids, rest, and analgesia prn. - AMOXICILLIN 875 MG-POTASSIUM CLAVULANATE 125 MG TABLET - FLUTICASONE PROPIONATE 50 MCG/ACTUATION NASAL SPRAY,SUSPENSION - Follow-up with your PCP in 3-5 days if symptoms have not improved or sooner if symptoms worsen - Discussed red flags and need for immediate medical evaluation if any occur. - Discussed supportive care treatment with fluids, rest and analgesia. - Discussed expected course of illness Melissa Marquez APRN.EDGE TRIMMER MECHANIC Adult Sinusitis Patient Education What is Sinusitis? Sinusitis [pkml-mgp-zkud-tis] is inflammation of the sinuses or swelling of the lining of the sinus cavity or nose. During an infection the sinuses become blocked with fluid causing swelling of the lining of the sinuses. Symptoms: (viral and bacterial infections) Stuffy nose Runny nose Postnasal drip Fever Toothache Headache Tiredness Cough Sore throat Face and head pressure and or pain Common causes: 98% of sinus infections are viral caused by viruses. Risk Factors of Sinusitis Include: Allergies, air pollution, indoor humidity and outdoor temperature changes, andstructural changes in the nose may contribute to sinus pain, pressure and congestion. When to get help? Temperature greater than 100.4 F Symptoms lasting more than 10 days or worsening symptoms greater than 7-10 days. If you do not improve or worsen after a course of antibiotics, you should be re-examined. Diagnosis and Treatment: Your healthcare provider will ask a number of questions about your symptoms and how long they have occurred. If symptoms of sinusitis persist greater than 10 days, it is possible you have a bacterial sinus infection and an antibiotic is prescribed. If it is viral, antibiotics will not help. You may be instructed to take uzzp-zef-lquttzz medications for symptoms. including fever reducers acetaminophen or ibuprofen, nasal saline spray, cough and cold preparations and decongestants as prescribed by the physician, nurse practitioner or physician offset assistant press operator. Self-Care and Prevention: Rest Fluids for hydration Good hand washing Humidifier Avoid smoking and exposure to second hand smoke Avoid sick contacts documented in this encounter [facility] 04-20-2024 Note HNO ID: [id number] Author: MELISSA MARQUEZ APRN.EDGE TRIMMER MECHANIC Service: ? Author Type: Nurse Practitioner Type: Progress Notes Filed: 04/20/2024 12:10 Note Text: Subjective Sinus Problem Associated symptoms include congestion and coughing. Pertinent negatives include no chills, fever, myalgias or sore throat. Tip Case is a 23 year old male who presents with sinus pressure and congestion x 3 weeks. He states congestion is worse at night. He has had brown mucous from his nose. He has a slight cough. Has had not had a fever. He has not taken any medication at home. Review of Systems Constitutional: Negative for chills, fever and malaise/fatigue. HENT: Positive for congestion and sinus pain. Negative for ear pain and sore throat. Respiratory: Positive for cough. Cardiovascular: Negative. Musculoskeletal: Negative for myalgias. BP 110/66 Pulse 84 Temp 36.3 ?C (97.4 ?F) Resp 16 Wt 84 kg (185 lb 3 oz) SpO2 97% No past medical history on file. No past surgical history on file. ALLERGIES Patient has no known allergies. MEDICATIONS amoxicillin-clavulanate potassium (AUGMENTIN) 875-125 mg per tablet Take 1 tablet by mouth two times a day for 7 days. fluticasone (FLONASE) 50 mcg/actuation nasal spray Use 2 Sprays in each nostril once daily. Rinse mouth after use. doxycycline hyclate (VIBRAMYCIN) 100 mg capsule Take 100 mg by mouth twice daily. (Patient not taking: Reported on 10/16/2021 ) Ailugnrjtajvywu-Jfjorsjlk-TP (BROMFED DM) 2-30-10 mg/5 mL syrup Take 5-10 ml po q6h prn (Patient not taking: Reported on 10/16/2021 ) No family history on file. Social History Tobacco Use Smoking status: Never Smokeless tobacco: Never Objective Physical Exam Vitals and nursing note reviewed. Constitutional: General: He is not in acute distress. Appearance: Normal appearance. He is not ill-appearing. HENT: Right Ear: Tympanic membrane, ear canal and external ear normal. Left Ear: Tympanic membrane, ear canal and external ear normal. Nose: Nasal tenderness, mucosal edema, congestion and rhinorrhea present. Mouth/Throat: Mouth: Mucous membranes are moist. Pharynx: Oropharynx is clear. Uvula midline. No oropharyngeal exudate or posterior oropharyngeal erythema. Cardiovascular: Rate and Rhythm: Normal rate and regular rhythm. Heart sounds: Normal heart sounds. Pulmonary: Effort: Pulmonary effort is normal. No respiratory distress. Breath sounds: Normal breath sounds. No wheezing or rales. Musculoskeletal: Cervical back: Neck supple. Lymphadenopathy: Cervical: No cervical adenopathy. Skin: General: Skin is warm and dry. Findings: No erythema or rash. Neurological: Mental Status: He is alert. ASSESSMENT/PLAN: 1. Bacterial sinusitis - ICD9: 473.9, 041.9, ICD10: J32.9, B96.89 - Will begin treatment with as per antibiotic as written, see orders - Supportive care with plenty of fluids, rest, and analgesia prn. - AMOXICILLIN 875 MG-POTASSIUM CLAVULANATE 125 MG TABLET - FLUTICASONE PROPIONATE 50 MCG/ACTUATION NASAL SPRAY,SUSPENSION - Follow-up with your PCP in 3-5 days if symptoms have not improved or sooner if symptoms worsen - Discussed red flags and need for immediate medical evaluation if any occur. - Discussed supportive care treatment with fluids, rest and analgesia. - Discussed expected course of illness Melissa Marquez APRN.[facility] 04-20-2024 History of Presen t illness Narrative Subjective Sinus Problem Associated symptoms include congestion and coughing. Pertinent negatives include no chills, fever, myalgias or sore throat. Tip Case is a 23 year old male who presents with sinus pressure and congestion x 3 weeks. He states congestion is worse at night. He has had brown mucous from his nose. He has a slight cough. Has had not had a fever. He has not taken any medication at home. Review of Systems Constitutional: Negative for chills, fever and malaise/fatigue. HENT: Positive for congestion and sinus pain. Negative for ear pain and sore throat. Respiratory: Positive for cough. Cardiovascular: Negative. Musculoskeletal: Negative for myalgias. BP 110/66 Pulse 84 Temp 36.3 C (97.4 F) Resp 16 Wt 84 kg (185 lb 3 oz) SpO2 97% No past medical history on file. No past surgical history on file. ALLERGIES Patient has no known allergies. MEDICATIONS amoxicillin-clavulanate potassium (AUGMENTIN) 875-125 mg per tablet Take 1 tablet by mouth two times a day for 7 days. fluticasone (FLONASE) 50 mcg/actuation nasal spray Use 2 Sprays in each nostril once daily. Rinse mouth after use. doxycycline hyclate (VIBRAMYCIN) 100 mg capsule Take 100 mg by mouth twice daily. (Patient not taking: Reported on 10/16/2021 ) Ytpijfznwamhjom-Pbaxfurou-GA (BROMFED DM) 2-30-10 mg/5 mL syrup Take 5-10 ml po q6h prn (Patient not taking: Reported on 10/16/2021 ) No family history on file. Social History Tobacco Use Smoking status: Never Smokeless tobacco: Never Objective Physical Exam Vitals and nursing note reviewed. Constitutional: General: He is not in acute distress. Appearance: Normal appearance. He is not ill-appearing. HENT: Right Ear: Tympanic membrane, ear canal and external ear normal. Left Ear: Tympanic membrane, ear canal and external ear normal. Nose: Nasal tenderness, mucosal edema, congestion and rhinorrhea present. Mouth/Throat: Mouth: Mucous membranes are moist. Pharynx: Oropharynx is clear. Uvula midline. No oropharyngeal exudate or posterior oropharyngeal erythema. Cardiovascular: Rate and Rhythm: Normal rate and regular rhythm. Heart sounds: Normal heart sounds. Pulmonary: Effort: Pulmonary effort is normal. No respiratory distress. Breath sounds: Normal breath sounds. No wheezing or rales. Musculoskeletal: Cervical back: Neck supple. Lymphadenopathy: Cervical: No cervical adenopathy. Skin: General: Skin is warm and dry. Findings: No erythema or rash. Neurological: Mental Status: He is alert. ASSESSMENT/PLAN: 1. Bacterial sinusitis - ICD9: 473.9, 041.9, ICD10: J32.9, B96.89 - Will begin treatment with as per antibiotic as written, see orders - Supportive care with plenty of fluids, rest, and analgesia prn. - AMOXICILLIN 875 MG-POTASSIUM CLAVULANATE 125 MG TABLET - FLUTICASONE PROPIONATE 50 MCG/ACTUATION NASAL SPRAY,SUSPENSION - Follow-up with your PCP in 3-5 days if symptoms have not improved or sooner if symptoms worsen - Discussed red flags and need for immediate medical evaluation if any occur. - Discussed supportive care treatment with fluids, rest and analgesia. - Discussed expected course of illness Melissa Marquez APRN.EDGE TRIMMER MECHANIC documented in this encounter [facility] 10-17-2021 Miscellaneous Notes Patient's father calls and notified of negative results. Voiced understanding. Kareen Peña RN COVID 19 negative Continue treatment plan at time of discharge. Follow up with PCP. documented in this encounter [facility] 10-16-2021 History of Presen t illness Narrative Subjective HPI HPI Tip Case is a 21 year old male who presents today for CC of cough, congestion. This started few days ago. Has tried otc medication for relief. Symptoms are worsened by nothing. Risk factors sick exposures recently. Denies cp/sob, st, fever, ear pain. .Patient presents with: COVID testing: COVID testing No past medical history on file. No past surgical history on file. ALLERGIES Patient has no known allergies. MEDICATIONS doxycycline hyclate (VIBRAMYCIN) 100 mg capsule Take 100 mg by mouth twice daily. Ytupjkmjbvamuwh-Xricysadp-FP (BROMFED DM) 2-30-10 mg/5 mL syrup Take 5-10 ml po q6h prn No family history on file. Social History Tobacco Use Smoking status: Never Smoker Smokeless tobacco: Never Used Substance Use Topics Alcohol use: Not on file Drug use: Not on file ROS Objective Blood pressure 122/80, pulse 102, temperature 37 C (98.6 F), temperature source Tympanic, resp. rate 16, weight 86.5 kg (190 lb 12.8 oz), SpO2 97 %. Physical Exam Constitutional: General: He is not in acute distress. Appearance: He is not toxic-appearing or diaphoretic. HENT: Head: Normocephalic and atraumatic. Cardiovascular: Rate and Rhythm: Normal rate and regular rhythm. Heart sounds: Normal heart sounds, S1 normal and S2 normal. Pulmonary: Effort: Pulmonary effort is normal. Breath sounds: Normal breath sounds. Lymphadenopathy: Cervical: No cervical adenopathy. Right cervical: No superficial cervical adenopathy. Left cervical: No superficial cervical adenopathy. Neurological: Mental Status: He is alert and oriented to person, place, and time. Gait: Gait is intact. ASSESSMENT/PLAN: 1. URI, acute - ICD9: 465.9, ICD10: J06.9 - Discussed viral etiology and rationale for treatment. - Symptomatic treatment with prn analgesia - Supportive care with fluids and rest - Follow up in 3-5 days if symptoms persist or sooner if worsening of symptoms Discussed quarantine, social distancing otc medications discussed Push fluids -If you experience chest pain/shortness of breath go to ER - 2019 CORONAVIRUS Abe Davis APRN.JAY documented in this encounter [facility] Evaluation note Diagnosis URI, acute- Primary Acute upper respiratory infections of unspecified site [facility] Diagnosis Bacterial sinusitis- Primary Unspecified sinusitis (chronic) [facility] Bacterial sinusitis- Primary Unspecified sinusitis (chronic) [facility] noteNo assessment information availableWSelect [facility] [place] Work Phone: Reason for referral (narrative)No reason for referral information availableWSelect Medical [facility] [place] Work Phone: Summary Purpose Family History No Family History Records FoundNo Family History Records FoundNo Family History Records FoundNo Family History Records Found Advance Directives No Advanced Directives Records FoundNo Advanced Directives Records FoundNo Advanced Directives Records FoundNo Advanced Directives Records Found Chief Complaint and Reason for Visit Chief Complaint Admit Date chronic sinusitis August 07, 2024 8:5 3am Additional Source Comments (unrecognized sect ion and content) No Status Records FoundNo Status Records FoundNo Status Records FoundNo Status Records Found INFORMATION SOURCE (unrecogn ized section and content) DATE CREATED AUTHOR 01/01/2018 [facility] ([place] DATE CREATED AUTHOR AUTHOR'S ORGANIZ ATION 11/14/2019 [facility] DATE CREATED AUTHOR AUTHOR'S ORGANIZ ATION 06/12/2024 [facility] DATE CREATED AUTHOR AUTHOR'S ORGANIZ ATION 11/28/2024 [facility] Source Comments (unrecognize d section and content) In the event this informatio n is protected by the Federal Confidentiality of Alcohol and Drug Abuse Patient Records regulations: The Federal rules restrict any use of the information to criminally investigate or prosecute any alcohol or drug abuse patient.[facility] the event this information is protected by the Federal Confidentiality of Alcohol and Drug Abuse Patient Records regulations: The Federal rules restrict any use of the information to criminally investigate or prosecute any alcohol or drug abuse patient.[facility] HospitalIn the event this information is protected by the Federal Confidentiality of Alcohol and Drug Abuse Patient Records regulations: The Federal rules restrict any use of the information to criminally investigate or prosecute any alcohol or drug abuse patient.[facility] HospitalIn the event this information is protected by the Federal Confidentiality of Alcohol and Drug Abuse Patient Records regulations: The Federal rules restrict any use of the information to criminally investigate or prosecute any alcohol or drug abuse patient.[facility] Reason for Visit (unrecogniz ed section and content) Reason Comments COVID testing COVID testing Reason Comments Results Reason Comments Sinus Problem sinus pressure, stefany murphy x 3 weeks Reason Comments Head Congestion Sinus congestion, dr ellison, MIR x3 months, seen 04/20 for same, 3 weeks at that time Care Teams (unrecognized sec tion and content) Telephonic Case Manager Relationship Specialty Start Date End Date Veronica Holcomb PCP - General Pediatrics 06/14/14 Telephonic Case Manager Relationship Specialty Start Date End Date Veronica Holcomb PCP - General Pediatrics 06/14/14 Telephonic Case Manager Relationship Specialty Start Date End Date Veronica Holcomb MD PCP - General Pediatrics 06/14/14 Team Status: Active Member Role Status Dates No Primary Care Physician Primary Care Provider Active Team Status: Inactive Member Role Status Dates Dr. Zack Brown MD Attending Provider Active Start: August 07, 2024 End: August 07, 2024 Dr. Zack Brown MD Referring Provider Active Start: August 07, 2024 End: August 07, 2024 No Primary Care Physician Primary Care Provider Active Start: August 07, 2024 End: August 07, 2024 Goals (unrecognized section and content) Goals may be documented in a n alternate section FOR RECORDS PERTAINING TO PATIENTS WHO ARE OR HAVE BEEN ENROLLED IN A CHEMICAL DEPENDENCY/SUBSTANCEABUSE PROGRAM, SOME INFORMATION MAY BE OMITTED. This clinical summary was aggregated from multiple sources. Caution should be exercised in using it in the provision of clinical care. This summary normalizes information from multiple sources, and as a consequence, information in this document may materially change the coding, format and clinical context of patient data. In addition, data may be omitted in some cases. CLINICAL DECISIONS SHOULD BE BASED ON THE PRIMARY CLINICAL RECORDS. [facility] [employer] provides no warranty or guarantee of the accuracy or completeness of information in this document.
--- NOTE | 2024-11-29 10:00 | ETH_PTH ---
PATIENT: GEOVANNI CASE LOC: [facility] U#:[id number] AGE/SX: 24/M ROOM: RE11/29/[address]: Dr. Jay Brown MD : 2000 BED: DIS: 11/29/2024 SPEC #: [id number] RECD: 11/29/24 11:34 STATUS: MICHELLE REMax #: [id number] DWAYNE: 11/29/24 10:[address]: Jay Brown DEPT: SURGICAL PATHOLOGY RECD BY: Markie Pereira ENTERED: 11/29/24 14:00 SP TYPE: ETH TISS OTHR DR: No Primary Care Phys Tissues: A - Ethmoid sinus, NOS B - Ethmoid sinus, NOS Procedures: Surgery Specimen Level IV HEADER OPERATION: Functional endoscopic sinus surgery, Navigation PRE-OP DIAGNOSIS: Other allergic rhinitis, nasal congestion, allergic rhinitis, unspecified, allergic rhinitis due to pollen, allergic rhinitis due to animal hair and dander, nasal polyp, unspecified, chronic sinus involving more than one TISSUE SUBMITTED: A- Right sinus contents, B- Left sinus contents MICROSCOPIC DIAGNOSIS A. Right sinus, contents, FESS: - Benign sinonasal mucosa with mild chronic inflammation including prominent eosinophils. - Fragments of unremarkable trabecular bone. B. Left sinus, contents, FESS: - Benign sinonasal mucosa with mild chronic inflammation including prominent eosinophils. - Fragments of unremarkable trabecular bone. MICROSCOPIC DESCRIPTION Slides are reviewed. GROSS DESCRIPTION Received in 2 formalin containers labeled with the patient's name and date of . Designated as: A. Right sinus contents is a 2.1 x 0.8 x 0.1 cm aggregate of pink-red tissue fragments and flecks of apparent bone. Entirely submitted in 1 cassette, following decalcification. B. Left sinus contents is a 2.9 x 1.6 x 0.3 cm aggregate of pink-red tissue fragments admixed with flecks of apparent bone. There is also a 1.5 x 0.9 x 0.8 cm irregular portion of apparent bone surfaced by lu and granular mucosa. The specimen is entirely submitted in 2 cassettes, following decalcification as follows: A. Aggregate of tissue fragmentsB. Irregular portion of bone with attached mucosa NE 11/29/2024 CPT:[id number]
[2024-11-29] MEDS: Lidocaine 1% /Epi 1:100 (20ml) 20 ML Vial (10:13)
[2024-11-29] MEDS: Oxymetazoline 0.05% 1 SPRAY SPRAY.BTL 15 SPRAY (10:14)
--- NOTE | 2024-11-29 10:39 | PCM.OPRPT ---
Operative Report (Standard) Operative Information Date of Procedure: 11/29/24 Pre-Operative Diagnosis: chronic sinusitis with polyp Post-Operative Diagnosis: same Surgery/Procedure Performed: Bilateral total ethmoidectomy Bilateral maxillary antrostomy Left partial middle turbinectomy Use of navigation hydrogen plant operations manager: No Type of Anesthesia: General RN Documented Start/Stop Times: Operation Date: 11/29/24 10:00 Case Time Into Pre-Op 11/29/24 08:38 Out of Pre-Op 11/29/24 09:43 Procedure Start Time: 10:00 Procedure Stop Time: 10:39 Select all DRAINS/GRAFTS/IMPLANTS that apply: None Estimated Blood Loss: <5 cc Specimen collected: Yes Description of specimen(s) removed: sinus contents Description of surgery: The patient was taken to the operating room on 11/29/2024. The patient was placed in the supine position on the operating table. The patient was given sufficient general endotracheal anesthesia. The head of bed was elevated 30 degrees. The navigation system was placed and verified per protocol and found to be accurate. 0 and 30 degrees rigid nasal endoscopes were used throughout the entire case. The middle turbinate uncinate process and polyps were injected with 1% lidocaine with epinephrine bilaterally. The right middle turbinate was medialized with a [place] elevator. Polyp was removed from the middle meatus using a sinus shaver. A ball-tipped sinus seeker was placed into the patient's maxillary sinus. The maxillary antrostomy was created with a backbiter and widened posteriorly with Bobo-Cut forceps. The uncinate process was taken down using a microdebrider. Next, the ethmoid bulla was opened with a small curette. Anterior and posterior ethmoidectomy were then carried out using curette, sinus shaver and 45 degree Bl[place] Stacia forceps. Ethmoid cells were verified for relation to the skull base and orbit prior to being entered with the navigation system. I then placed Afrin pledgets into the sinonasal cavity. Next attention was turned to the left side. The middle turbinate was medialized with a [place] elevator. It was quite large and degenerating into polyp. I elected to resect a portion of this to access the sinus cavity. I resected the bottom half of the middle turbinate with Bobo-Cut forceps. The cut edges were cauterized with suction cautery. The maxillary antrostomy was created with a backbiter and widen posteriorly with Bobo-Cut forceps. The uncinate process was taken down using a sinus shaver. The ethmoid bulla was opened with a small curette. Anterior posterior ethmoidectomy were then carried out using a sinus shaver curette and [place] Stacia forceps. Ethmoid cells were verified for relation to the skull base and orbit prior to being entered with the navigation system. Hemostasis was then achieved using Afrin pledgets. The pledgets were then removed bilaterally and Hemoblast powder was applied bilaterally for absolute hemostasis. The procedure was then terminated. The patient was then awoken and brought to the recovery room in stable condition blood loss less than 5 cc, replacement none. Sponge, needle, instrument count were correct at the end of the procedure. Surgical Findings: polyp bilateral Complications Complications: No
--- NOTE | 2024-11-29 11:00 | PCM.POST.ANE ---
Anesthesia: Postop Eval I Current Vital Signs Temperature: 97.1 F Pulse Rate: 40 Blood Pressure: 115/51 Respiratory Rate: 18 Pulse Ox: 97 Assessment Airway patent: Yes Spontaneous unlabored respirations: Yes nausea: No Vomiting: No Anesthesia Complication: No Fluid Hydration Crystalloid volume administer (ml): 1,000 Total IV fluid infused: 1,000 Progress Note Anesthesia document: Postop Eval 1 completed: Yes
--- NOTE | 2024-11-29 12:41 | POSTOPAN2_ITS ---
Anesthesia Postop Eval I Sum Postop Eval Completion status Anesthesia document: Postop Eval 1 completed: Yes Anesthesia Postop Eval I Summary Anesthesia Postop Eval I Summary: Anesthesia Postop Eval I: Assessment Summary Airway patent Yes 11/29/24 11:30 BUSINESS INTELLIGENCE CONSULTANT.CSIR Spontaneous unlabored Yes 11/29/24 11:30 BUSINESS INTELLIGENCE CONSULTANT.CSIR respirations Mental status nausea No 11/29/24 11:30 BUSINESS INTELLIGENCE CONSULTANT.CSIR Vomiting No 11/29/24 11:30 BUSINESS INTELLIGENCE CONSULTANT.CSIR Anesthesia Postop Eval I: Fluid Summary Crystalloid volume administer 1,000 11/29/24 11:30 BUSINESS INTELLIGENCE CONSULTANT.CSIR (ml) Colloids volume administered ( ml) Blood Product volume administered (ml) Total IV fluid infused 1,000 11/29/24 11:30 BUSINESS INTELLIGENCE CONSULTANT.CSIR Anesthesia Postop Eval I: Summary Notes Anesthesia Complication No 11/29/24 11:30 BUSINESS INTELLIGENCE CONSULTANT.CSIR Anesthesia Complication Comment: Post-operative progress note Anesthesia: Postop Eval II Evaluation Mental status: Awake Pain Level: 1 nausea: No Vomiting: No
--- NOTE | 2024-11-29 12:41 | PCM.POSTANE2 ---
Anesthesia Postop Eval I Sum Postop Eval Completion status Anesthesia document: Postop Eval 1 completed: Yes Anesthesia Postop Eval I Summary Anesthesia Postop Eval I Summary: Anesthesia Postop Eval I: Assessment Summary Airway patent Yes 11/29/24 11:30 POT TENDER.CSIR Spontaneous unlabored Yes 11/29/24 11:30 POT TENDER.CSIR respirations Mental status nausea No 11/29/24 11:30 POT TENDER.CSIR Vomiting No 11/29/24 11:30 POT TENDER.CSIR Anesthesia Postop Eval I: Fluid Summary Crystalloid volume administer 1,000 11/29/24 11:30 POT TENDER.CSIR (ml) Colloids volume administered ( ml) Blood Product volume administered (ml) Total IV fluid infused 1,000 11/29/24 11:30 POT TENDER.CSIR Anesthesia Postop Eval I: Summary Notes Anesthesia Complication No 11/29/24 11:30 POT TENDER.CSIR Anesthesia Complication Comment: Post-operative progress note Anesthesia: Postop Eval II Evaluation Mental status: Awake Pain Level: 1 nausea: No Vomiting: No
== END 2024-11-29 11:53 | disposition home or self-care (01) ==
LOC: SDC 08:26 → AC 08:27
PROVIDERS: Referring Provider Otolaryngology; Visit Provider Otolaryngology
PROC: (CPT 31255; principal; 2024-11-29 09:30)
DX: J32.0 Chronic maxillary sinusitis (principal); J33.9 Nasal polyp, unspecified; J30.89 Other allergic rhinitis; F17.290 Nicotine dependence, other tobacco product, uncomplicated
CPT/HCPCS: 31255; 31267; 30999; 61782; 00160; 88305; J2405